=== PATIENT | female | born 1995 | race Caucasian/White ===

== ENCOUNTER 2020-04-02 12:53 | Outpatient (CLI) | payer OTHER ==
[2020-04-03 03:28] LABS: SARS-CoV-2 MS2 Positive; SARS-CoV-2 N Gene Negative; SARS-CoV-2 S Gene Negative; SARS-CoV-2 by NAA Not Detected (NotDetected); SARS-CoV-2 orf1ab Negative
== END 2020-04-02 12:54 | disposition home or self-care (01) ==
LOC: LABBT 12:53
PROVIDERS: ATTEND Obstetrics & Gynecology
DX: Z01.812 Encounter for preprocedural laboratory examination (principal); Z20.828 Contact with and (suspected) exposure to other viral communicable diseases
CPT/HCPCS: 87635; U0003

== ENCOUNTER 2020-04-05 19:15 | Inpatient (IN) | payer OTHER ==
--- NOTE | 2020-04-05 17:07 | PDOC.LDHP ---
Labor and Delivery H&P Chief complaint: scheduled induction HPI: 25 y/o at 37 and 2/7 weeks presents for medical term induction of labor. Patient has hx of morbid obesity and chronic HTN. Also hx of SAB x 4 reported. Current gestational age (weeks): 37 Grav: 5 Para: 0 Current medications: pre-paco vitamins Previous surgical history: none Social history: none - Physical Exam Vital signs reviewed and normal: yes General: NAD, resting Heart: RRR Lungs: CTAB Abdomen: gravid Extremeties: no edema FHT: category 1 - Assessment L&D Assessment: medically indicated induction - Plan Plan: admit to L&D, cervical ripening
[~2020-04-05 19:15] MED LIST: Acetaminophen 500 MG TAB PO PRN; Butorphanol Tartrate 1 MG/ML VIAL SLOW IVP PRN; Carboprost 250 MCG/ML AMP IM PRN; Diphenoxylate HCl/Atropine Tablet PO PRN; Docusate 100 MG CAP PO PRN; HYDROcodone/Acetaminophen 5/325 mg Tablet PO PRN; Ibuprofen 800 MG TAB PO PRN; Lidocaine 1% (PF) 30 ML VIAL SC PRN; Misoprostol 200 MCG TAB PR PRN; NS / Oxytocin 40 units/1000ml 1,000 ML IV PRN; Ondansetron PF 4 MG/2 ML Vial IVP PRN; Promethazine HCl 25 MG/ML VIAL IM PRN; Zolpidem Tartrate 5 MG TAB PO PRN; hydrALAZINE 20 MG/ML VIAL SLOW IVP PRN
[2020-04-05] MEDS ORDERED: NS w/ Oxytocin 10 units 500 ML IV SCH (20:00)
[2020-04-05] MEDS: Lactated Ringer's 1,000 ML IV SCH (20:50)
[2020-04-05 20:52] VITALS: BMI 43.7
[2020-04-05 21:20] LABS: Hemoglobin 8.8 g/dL (12.0-16.0); Mean Corpuscular HGB CONC 32.9 g/dL (32.0-36.0); Mean Corpuscular Hemoglobin 25.6 pg (27.0-31.0); Mean Corpuscular Volume 77.8 fL (78.0-98.0); Mean Platelet Volume 7.5 fL (7.4-10.4); Platelet Count 329 thou/uL (130-400); RBC Distribution Width 15.8 % (11.5-14.5); Red Blood Cell (RBC) Count 3.45 mill/uL (4.20-5.40); White Blood Cell (WBC) Count 8.3 thou/uL (4.8-10.8)
[2020-04-05] MEDS: Misoprostol 100 MCG TAB VAG SCH (21:30)
[2020-04-05 22:03] LABS: Syphilis Antibody Nonreactive (Nonreactive); Syphilis Antibody Index 0.02 S/CO (<1.00 Non-Reactive)
[2020-04-06] MEDS: Misoprostol 100 MCG TAB VAG SCH ×4 (00:43→21:42)
[2020-04-06 02:14] LABS: HBSAg Index 0.17 S/CO (0-0.99); Hep B Surf Ag Non-Reactive S/CO (NonReactive)
[2020-04-06] MEDS: Lactated Ringer's 1,000 ML IV SCH (06:06)
[2020-04-06] MEDS ORDERED: FLU VACC QS2020-21(6MOS UP)/PF 60 MCG/0.5 ML SYRINGE IM ONE (09:00)
[2020-04-07] MEDS: Misoprostol 100 MCG TAB VAG SCH ×3 (01:21→19:28)
[2020-04-07] MEDS ORDERED: Terbutaline Sulfate 1 MG/ML VIAL ONE (06:49)
[2020-04-07] MEDS ORDERED: Famotidine/PF 20 mg/2ml Vial SLOW IVP PRN (08:57)
[2020-04-07] MEDS ORDERED: Bicitra 30 ML UDCUP PO PRN (08:57)
[2020-04-07] MEDS ORDERED: CEFAZOLIN 2 GM in Premix Bag 1 BAG IVPB SCH (09:00)
[2020-04-07] MEDS ORDERED: Promethazine HCl 25 MG SUPP PR PRN (11:59)
[2020-04-07] MEDS ORDERED: HYDROmorphone 2 MG/ML VIAL SLOW IVP PRN (11:59)
[2020-04-07] MEDS ORDERED: L&D-Morphine 4 MG/ML VIAL SLOW IVP PRN (11:59)
[2020-04-07] MEDS ORDERED: Ondansetron PF 4 MG/2 ML Vial IVP PRN (11:59)
[2020-04-07] MEDS ORDERED: Naloxone HCl 0.4 mg/ml Vial IVP PRN ×2 (11:59)
[2020-04-07] MEDS ORDERED: Ondansetron HCl/PF 4 MG/2 ML Vial IVP PRN (11:59)
[2020-04-07] MEDS ORDERED: Naloxone HCl 0.4 mg/ml Vial IV PRN (11:59)
[2020-04-07] MEDS ORDERED: Promethazine HCl 25 MG/ML VIAL IM PRN (11:59)
[2020-04-07] MEDS ORDERED: diphenhydrAMINE 50 MG/ML VIAL IVP PRN (11:59)
[2020-04-07] MEDS ORDERED: Meperidine HCl/PF 25 MG/ML VIAL SLOW IVP PRN (11:59)
[2020-04-07] MEDS ORDERED: Ketorolac Tromethamine 30 MG/ML VIAL IVP SCH (12:00)
[2020-04-07] MEDS ORDERED: Communication Order-Pharmacy FS SCH (12:00)
[2020-04-07] MEDS ORDERED: Morphine PF 10 MG/10 ML VIAL ONE (12:07)
[2020-04-07] MEDS ORDERED: PHENYLEPHRINE-NS 100 MCG/ML 10 ML SYRINGE ONE (12:08)
[2020-04-07] MEDS ORDERED: Oxytocin 10 UNITS/ML VIAL ONE (12:08)
[2020-04-07 17:35] LABS: Actual Bicarbonate (HCO3v) 19 mEq/L (22-28); Analyzer IN Cardio OR; Base Excess -12.6 mEq/L (-2.0 to +3.0)
[2020-04-07 17:36] LABS: Actual Bicarbonate (HCO3a) 20.1 mEq/L (22-28); Analyzer IN Cardio OR; Base Excess (BEa) -11.6 mEq/L (-2.0 to +3.0); pH (Cord, venous) 7.03 (7.32-7.43)
[2020-04-07] MEDS: NS w/ Oxytocin 10 units 500 ML IV SCH ×2 (19:27→22:31)
[2020-04-07] MEDS: Lactated Ringer's 1,000 ML IV SCH (19:29)
[2020-04-07] MEDS: Ketorolac Tromethamine 30 MG/ML VIAL IVP PRN (22:12)
[2020-04-08] MEDS: Enoxaparin Sodium 40 MG/0.4 ML SYRINGE SC SCH (01:24)
[2020-04-08] MEDS: CEFAZOLIN 2 GM in Premix Bag 1 BAG IVPB SCH ×2 (03:50→11:58)
[2020-04-08] MEDS: Ketorolac Tromethamine 30 MG/ML VIAL IVP PRN (04:47)
[2020-04-08] MEDS ORDERED: FLU VACC QS2020-21(6MOS UP)/PF 60 MCG/0.5 ML SYRINGE IM ONE (09:00)
[2020-04-08] MEDS ORDERED: HYDROcodone/Acetaminophen 5/325 mg Tablet PO PRN (16:13)
[2020-04-08] MEDS: HYDROcodone/Acetaminophen 5/325 mg Tablet PO PRN (16:44)
[2020-04-08] MEDS: Simethicone Chewable 80 MG TAB PO PRN ×2 (18:09→21:10)
[2020-04-08] MEDS: Ibuprofen 800 MG TAB PO SCH (21:10)
[2020-04-08] MEDS: Docusate Calcium (SURFAK) 240 MG CAP PO SCH (21:10)
--- NOTE | 2020-04-09 00:34 | OP ---
DATE OF PROCEDURE: 04/07/2020 TIME OF SERVICE: 1236 hours Central Standard Time. PREOPERATIVE DIAGNOSES: Intrauterine at 37 weeks and 4 days with a history of gestational hypertension and morbid obesity as well as failure to dilate and non-reassuring heart tones. Suspected uterine fibroid. POSTOPERATIVE DIAGNOSES: Intrauterine at 37 weeks and 4 days with a history of gestational hypertension and morbid obesity as well as failure to dilate and non-reassuring heart tones. Suspected uterine fibroid. PROCEDURES PERFORMED: 1. Primary low-transverse section. 2. Myomectomy. FINDINGS: Viable female infant weighing 3261 g or 7 pounds 3 ounces, Apgars of 4 and 8. QUANTITATIVE BLOOD LOSS: 502 mL. COMPLICATIONS: None. DETAILS OF THE PROCEDURE: After obtaining consent, the patient was taken back to the operating room where her regional anesthesia was found to be adequate. The patient was placed in the dorsal supine position with leftward tilt. The skin was tested for adequate anesthesia and a scalpel was then used to make a Pfannenstiel incision which was carried down to the underlying rectus fascia. The fascia was incised in the midline and the fascial incision extended in both lateral directions. 2 Mariah clamps were placed at the superior aspect of the fascia and the rectus muscles were dissected away. Similarly, 2 Mariah clamps were placed at the inferior aspect of the incision and rectus muscles dissected away. The rectus muscles were then in the midline and the peritoneum identified and entered bluntly with the hemostat. The peritoneal incision was then extended superiorly and inferiorly. A bladder blade was then placed within the peritoneal cavity and a bladder flap was made with Metzenbaum scissors and pickups with teeth. The bladder blade was replaced. A clean scalpel was used to make a uterine incision. The baby was then delivered with gentle fundal pressure without difficulty. The baby's mouth and nose were bulb suctioned and the cord clamped and cut. The baby was then handed to waiting attendants. Cord blood and cord gases were obtained. The placenta was manually extracted. The uterus exteriorized, cleared of all clots and debris, and repaired with #1 chromic suture in a running, locked fashion. Hemostasis at the uterine wall was excellent. The bladder flap was repaired with 2-0 Monocryl in a running fashion. The tubes and ovaries were inspected and appeared normal. The posterior cul-de-sac was blotted dry and the uterus was replaced within the abdomen. Again, the uterus was firm, and hemostasis was excellent at the uterine repair. Peritoneum was closed with 2-0 chromic suture in a running fashion. Fascia was reapproximated with 0 Vicryl, using 2 running sutures tied in the midline. The subcutaneous tissue was irrigated. Hemostasis was assured and the skin closed with 3-0 Monocryl and Dermabond adhesive. The patient was then transferred to the ambulatory bed and taken to recovery in stable condition. Job ID: [id number]
[2020-04-09] MEDS: Enoxaparin Sodium 40 MG/0.4 ML SYRINGE SC SCH (01:37)
[2020-04-09] MEDS: HYDROcodone/Acetaminophen 5/325 mg Tablet PO PRN (01:41)
[2020-04-09] MEDS: Simethicone Chewable 80 MG TAB PO PRN (05:26)
[2020-04-09] MEDS: Ibuprofen 800 MG TAB PO SCH (05:27)
[2020-04-09] MEDS ORDERED: Prenatal Vitamin 1 TAB PO SCH (09:00)
[2020-04-09] MEDS: Docusate Calcium (SURFAK) 240 MG CAP PO SCH (10:32)
[2020-04-09 14:19] VITALS: BP 138/61; TEMP 98.6
== END 2020-04-09 13:55 | disposition home or self-care (01) | DRG 787 ==
LOC: L&D 20:18 → 3SW 04-07 18:13
PROVIDERS: ADMIT Obstetrics & Gynecology; ATTEND Obstetrics & Gynecology
PROC: 10D00Z1 Extraction of Products of Conception, Low, Open Approach (ICD-10-PCS; principal; 2020-04-07)
PROC: 0UB90ZZ Excision of Uterus, Open Approach (ICD-10-PCS; 2020-04-07)
PROC: 3E0P7VZ Introduction of Hormone into Female Reproductive, Via Natural or Artificial Opening (ICD-10-PCS; 2020-04-07)
PROC: 3E033VJ Introduction of Other Hormone into Peripheral Vein, Percutaneous Approach (ICD-10-PCS; 2020-04-07)
DX: O36.8330 Maternal care for abnormalities of the fetal heart rate or rhythm, third trimester, not applicable or unspecified (principal); O10.92 Unspecified pre-existing hypertension complicating childbirth; Z3A.37 37 weeks gestation of pregnancy; Z37.0 Single live birth; O99.214 Obesity complicating childbirth; E66.01 Morbid (severe) obesity due to excess calories; O66.40 Failed trial of labor, unspecified; O34.13 Maternal care for benign tumor of corpus uteri, third trimester; D25.9 Leiomyoma of uterus, unspecified
CPT/HCPCS: 36415; 51702; 82805; 85027; 86780; 86850; 86900; 86901; 87340; 88305; J0690; J1650; J1885; J2270; J3105